=== PATIENT | male | born 1975 | race Caucasian/White ===

== ENCOUNTER 2017-09-08 10:02 | Emergency (ER) | payer SELFPAY ==
[~2017-09-08] VITALS: Ht 175.3 cm; Wt 86.4 kg
[2017-09-08] MEDS ORDERED: LOSA50TA37 PO (10:13)
[2017-09-08 10:38] VITALS: BP 152/98
[2017-09-08] MEDS ORDERED: LOSARTAN POTASSIUM 50 MG TABLET PO ONE (11:00)
== END 2017-09-08 11:37 | disposition home or self-care (01) ==
LOC: EMS 10:03
DX: I10 Essential (primary) hypertension (principal); Z76.0 Encounter for issue of repeat prescription; Z88.0 Allergy status to penicillin
CPT/HCPCS: 99283